=== PATIENT | male | born 1960 | race Caucasian/White ===

== ENCOUNTER → 2020-03-18 15:06 | Outpatient (CLI) | payer MEDICAID, SELFPAY ==
--- NOTE | 2020-03-18 | MISC_PTH ---
PATIENT: DANY LOYOLA LOC: [facility] U#:[id number] AGE/SX: 65/M ROOM: RE03/18/[address]: Dr. 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 See comment. JESUS:sarah 03/23/20 COMMENT Immunohistochemistry ([id number]) for surrogate HPV marker (p16) results will be reported separately. Clinical correlation and appropriate follow up are necessary. Case has been reviewed in consultation with Dr. Calle who concurs with the above diagnosis. IDC:AM MICROSCOPIC DESCRIPTION Slides are reviewed. GROSS DESCRIPTION Received in fixative is one container labeled with the patient's name and designated soft palate. The specimen consists of a piece of castellon mucosal tissue measuring 0.6 x 0.3 x 0.2 cm. The specimen is inked and submitted entirely in one cassette. / SJ:rg 03/20/20 TC:0 CPT: 82449
--- NOTE | 2020-03-18 | IMM_PTH ---
PATIENT: DANY LOYOLA LOC: [facility] U#:[id number] AGE/SX: 65/M ROOM: RE03/18/[address]: Dr. Carlyle Brandon MD : 1960 BED: DIS: SPEC #: [id number] RECD: 03/23/20 10:09 STATUS: NERI JONE #: [id number] FORREST: 03/18/20 00:[address]: Carlyle Brandon DEPT: IMMUNOHISTOCHEMISTRY RECD BY: Jillian Fernandez Tissues: Soft palate Procedures: p16 (initial) PHYSICIAN & INSTITUTION [place] [id number] SPECIMEN INFORMATION: Tissue Source: Soft palate Clinical Info: Soft tissue neoplasm Specimen Number: [id number] CPT code: 35582 METHODOLOGY: Deparaffinized sections of prefer/formalin-fixed tissue or PAP/DQ stained slides are incubated with monoclonal/polyclonal antibodies/oligonucleotide probes. Localization is made via biotin free immunoperoxidase method. Appropriate controls are performed and reacted as expected. Results on target cell population are indicated in the following table: RESULTS: ANTIBODY / CLONE RESULT P16 (E6H4) negative These tests were developed and their performance characteristics determined by [facility]. They may not have been cleared or approved by the U.S. Food and Drug Administration. The FDA has determined that such clearance or approval is not necessary. The above immunohistochemical/dualISH markers are ordered and reviewed by the Pathologist. INTERPRETATION: Soft palate, biopsy: Invasive squamous cell carcinoma. See comment. JESUS:sarah 03/24/20 Comment: Uninvolved epithelium shows focal patchy staining.
== END ==
PROVIDERS: Referring Provider Otolaryngology; Visit Provider Otolaryngology
DX: D49.0 Neoplasm of unspecified behavior of digestive system (principal)
CPT/HCPCS: 88305; 88342

== ENCOUNTER 2020-08-31 12:54 | Emergency (ER) | payer MEDICAID, SELFPAY ==
[2020-08-31 13:06] VITALS: BP 136/101; PULSE 100; RESP 19; TEMP 36.6; O2SAT 99; BMI 16.9
--- NOTE | 2020-08-31 13:39 | EKG12_ITS ---
Test Reason : GENERAL ILLNESS Blood Pressure : / mmHG Vent. Rate : 097 BPM Atrial Rate : 097 BPM P-R Int : 134 ms QRS Dur : 096 ms QT Int : 366 ms P-R-T Axes : 083 -48 080 degrees QTc Int : 464 ms Sinus rhythm with sinus arrhythmia with occasional Premature ventricular complexes Left axis deviation Septal infarct , age undetermined Abnormal ECG Confirmed by NEAL WILSON, AAMIR ([id number]), editorial cartoonist BO QUEEN ([id number]) on 09/02/2020 10:47:12 AM Referred By: LAWANDA/BB Confirmed By:AAMIR DE JESUS MD
--- NOTE | 2020-08-31 13:41 | ED.DCSUM_ITS ---
History of Present Illness Chief Complaint: General Illness Informant: Patient Onset: Month(s) - 2+ Context: Gradual Onset Timing: Continuous Quality: malaise Location: all over Current Severity: Moderate Maximum Severity: Moderate Narrative: Patient states he was diagnosed with throat cancer stage II after seeing ENT for sore throat this past summer, but subsequently his mother and he had to do a lot in trying to care for her before and after her , and states he has not seen a doctor since until today. He has been having trouble swallowing, he is able to pass liquids but not solids, he feels malaise, he has dyspnea with exertion, nonproductive cough, no chest pain or headaches or focal neurologic symptoms. He has not seen oncology yet. - Past Medical History (1) Throat cancer Status: Chronic Past Medical History - Allergies and Home Meds Allergies/Adverse Reactions: Allergies No Known Allergies Allergy (Verified 08/31/20 13:11) Primary Care Physician: Care Physician,No Primary [Primary Care Provider] - Lives: Alone Smoking Status: Current every day smoker Review of Systems General: Reports: Malaise. Denies: Chills, Fever, Sweats Eyes: Denies: Visual changes - bilaterally, Diplopia ENT: Reports: Sore throat, - - dysphagia. see HPI., - - no sense of taste/smell x at least 2 mos. Denies: Bilateral ear pain, Rhinorrhea Cardiovascular: Denies: Chest pain, Palpitations Respiratory: Denies: Dyspnea, Cough, Dyspnea on exertion Gastrointestinal: Reports: - - loss of appetite. Denies: Abdominal pain, Na usea, Vomiting, Diarrhea, Melena, Hematochezia Genitourinary: Denies: Dysuria, Hematuria, Frequency Musculoskeletal: Denies: Myalgias, Neck pain, Back pain, Swelling, Extremity Pain Skin: Denies: Rash, Wounds Neurological: Denies: Headache, Weakness, Numbness Physical Exam Vital Signs/Narrative: Vital Signs Temp Pulse Resp BP Pulse Ox 08/31/20 13:06 97.9 F 100 19 H 136/101 H 99 Inital Vital Signs reviewed: Yes General: Well nourished, Well developed, Unkempt, No Acute Distress Head: Normocephalic, Atraumatic Eyes: Perrl, EOMI - Disconjugate gaze, present since per patient ENT: No rhinorrhea, Dry mucous membranes, - - Posterior oropharynx is erythematous and with white tissue in the soft palate without an obvious unilateral mass Neck: Supple, Nontender, No lymphadenopathy Cardiovascular: No murmurs, Irregular - Occasionally, Tachycardia - Mild Respiratory: No distress, CTA bilaterally, Chest nontender, Diminished - Throughout, symmetrically Abdomen: Soft, Nontender, Nondistended, Normal bowel sounds Back: Nontender, Normal Inspection Extremities: Nontender, No edema. Negative for: Calf Tenderness Skin: Normal color, No rash, No Trauma Neurological: Alert, Oriented x3, Cranial nerves II-XII grossly intact, Normal Strength, Normal Sensation Psychological: Normal affect, Normal Mood Diagnostic/Tx/Re-eval Impressions Chest X-Ray 08/31/20 14:10 IMPRESSION: Hyperinflation. No acute abnormality is seen. Electronically Signed: Elliot Larson, at 14:34 EST , Service support , 08/31/20 14:10 Chest 1 View (Portable) [RAD] Stat 08/31/20 17:00 CTA Chest W/WO Contrast [CT] Stat Laboratory Results 08/31/20 08/31/20 08/31/20 13:00 13:00 13:00 WBC 5.7 RBC 4.69 Hgb 16.5 Hct 45.0 MCV 95.9 H MCH 35.2 H MCHC 36.7 H RDW Std Deviation 45.3 H RDW Coeff of Ariel 13.4 Plt Count 184 MPV 9.5 Immature Gran % (Auto) 0.400 Neut % (Auto) 63.9 Lymph % (Auto) 23.6 Milam % (Auto) 11.2 H Eos % (Auto) 0.5 Baso % (Auto) 0.4 Absolute Neuts (auto) 3.7 Absolute Lymphs (auto) 1.35 Nucleated RBC % 0 D-Dimer Quant (PE/DVT) 0.73 H* Sodium 133 L Potassium 3.7 Chloride 99 Carbon Dioxide 25.0 Anion Gap 9 BUN 16 Creatinine 0.60 L Estim Creat Clear Calc 90.74 Est GFR (MDRD) Af Amer 177 Est GFR (MDRD) Non-Af 146 BUN/Creatinine Ratio 26.7 H Glucose 45 L Calcium 8.8 Total Bilirubin 0.60 AST 15 ALT 11 L Alkaline Phosphatase 75 Troponin I < 0.015 Total Protein 6.3 L Albumin 2.6 L Globulin 3.7 Albumin/Globulin Ratio 0.7 L Lipase 54 L - Rhythm Strip Rhythm Strip: sinus arrhythmia Rate: 97 Ectopy: PAC(s) - EKG Initial EKG Interpretation: No Acute Injury Pattern, Sinus Arrythmia, - - LAD. PACs. Prior: No Prior - Medical Decision Making Patient does not have any significant electrolyte abnormalities, he is not anemic and does not have a leukocytosis to indicate acute infection of any sort. His chest x-ray is nonspecific, and pretty unremarkable. Given the fact that the patient states he is having moderate dyspnea with exertion along with untreated cancer, D-dimer was added and was abnormal even when corrected for age. Therefore CT angiography of the chest was obtained to rule out pulmonary embolus, it is negative. Patient was able to drink liquids without any difficulty and he was able to walk without hypoxemia. Given all of this, I explained to the patient do not think there is any medical reason to admit him at this time, but he needs to follow-up closely to get his cancer treated which he agrees with and wants to do. He does not have a PCP. He states he was not referred to ENT, he simply looked one up in the phone book and made an appointment because he was tired of having a sore throat. His biopsy shows p16 negative invasive squamous cell carcinoma of the soft palate. Patient states that he was told his is stage II. I discussed this with oncology on-call Dr. Hudson, who agrees that the patient follow-up with him as well as Dr. Brandon since he is having dysphagia that may be associated with the mass, and I will also refer the patient to a PCP since he does not have one. Discussed all this with the patient he is comfortable with this overall plan and since he is having a lot of GERD symptoms and drinking a lot of Pepto-Bismol causing him to have hard black nonmelanotic stools, we will also prescribe him a PPI. ED Disposition - Plan for ED Patient: Disposition: Home or Assisted Living Diagnosis: Squamous cell carcinoma of soft palate, Dysphagia, GERD (gastroesophageal reflux disease) Instructions: ED Dysphagia (Adult), What Are Oral Lesions? (Precancerous and Cancerous) Prescriptions: Pantoprazole Sodium [Protonix] 40 mg PO DAILY #30 tab Transmission Status: Pending to [id number] Referrals: Essence Dias MD [STAFF PHYSICIAN] - (as able for primary care) Jeffrey Hudson DO [STAFF PHYSICIAN] - As soon as possible (for oncology (cancer treatment)) Carlyle Brandon MD [STAFF PHYSICIAN] - As soon as possible (regarding your trouble swalling that may be associated with the throat mass)
[2020-08-31 14:08] VITALS: BP 136/108; PULSE 110; RESP 22; O2SAT 97
[2020-08-31] MEDS: 0.9% Normal Saline 1,000 ML 150 ML IV (14:09)
--- NOTE | 2020-08-31 14:10 | RAD_ITS ---
STUDY: X-RAY CHEST REASON FOR EXAM: Male, 60 years old. Generalized weakness, Hx throat cancer TECHNIQUE: Single AP portable view of the chest. COMPARISON: None. FINDINGS: EKG electrodes are seen. There is hyperinflation of the lungs consistent with chronic obstructive lung disease (COPD). Decreased bronchovascular markings bilaterally. There is no demonstrated pleural abnormality. Normal size heart. Normal mediastinum and junior. Normal visualized pulmonary arteries. There is atherosclerotic tortuosity of the aortic arch and descending thoracic aorta. Normal visualized thoracic spine. Normal visualized ribs, clavicles, and shoulders. There is no demonstrated abnormality of the visualized soft tissue structures of the upper abdomen. RAD/Chest 1 View (Portable) IMPRESSION: Hyperinflation. No acute abnormality is seen. Electronically Signed: Elliot Larson, at 14:34 EST , Service support ,
[2020-08-31 14:20] LABS: Absolute Lymphocyte Count 1.35 X10^3/uL (0.83-4.51); Absolute Neutrophil Count 3.7 X10^3/uL (2.0-7.7); Basophil# 0.02 X10^3/uL; Basophil% 0.4 % (0-1); Eosinophil# 0.03 X10^3/uL; Eosinophils% 0.5 % (0-5); Hemoglobin 16.5 g/dL (13.0-16.5); Lymphocyte # 1.35 X10^3/ul (4.0); Lymphocyte % 23.6 % (19-41); Mean Corp Hgb Conc 36.7 g/dL (32-36); Mean Corpuscular Hgb 35.2 pg (27.0-32.0); Mean Corpuscular Volume 95.9 fL (80-94); Mean Platelet Vol. 9.5 fl (6.2-12.0); Monocyte# 0.64 X10^3/uL; Monocyte% 11.2 % (0-10); NRBC Flagged by Analyzer 0 % (0-5); Neutrophil # 3.65 X10^3/uL (2.7-7.7); Neutrophil % 63.9 % (47-70); Platelet Count 184 K/mm3 (150-450); RBC Distribution Width CV 13.4 % (11.6-14.6); RBC Distribution Width SD 45.3 fl (35.1-43.9); Red Blood Count 4.69 M/mm3 (4.6-6.2); White Blood Count 5.7 K/mm3 (4.4-11.0)
[2020-08-31 14:30] LABS: ALB/GLOB Ratio 0.7 RATIO (0.9-2.4); AST(SGOT) 15 U/L (15-37); Alanine Aminotransfer ALT/SGPT 11 U/L (16-61); Albumin, Serum 2.6 g/dL (3.2-5.0); Alkaline Phosphatase 75 U/L (45-117); Anion Gap 9 (5-15); BUN 16 mg/dL (7-18); BUN/Creat Ratio 26.7 RATIO (10-20); Calcium,Total 8.8 mg/dL (8.5-10.1); Chloride 99 mmol/L (98-107); EST Glomerular Filtration Rate 146 mL/min (>60); Est Glom Filt Rate - Afr Amer 177 mL/min (>60); Estimated Creatinine Clearance 90.74 ml/min; Globulin 3.7 g/dL (2.2-4.2); Glucose 45 mg/dL (74-106); Lipase 54 U/L (73-393); Potassium 3.7 mmol/L (3.5-5.1); Protein, Total 6.3 g/dL (6.4-8.2); Sodium Level 133 mmol/L (136-145)
[2020-08-31 16:00] VITALS: BP 143/91; PULSE 90; RESP 19; O2SAT 97; O2SAT 99
[2020-08-31 16:35] LABS: D-Dimer Quantitative (DVT/PE) 0.73 FEU/ug/m (0.27-0.49)
--- NOTE | 2020-08-31 17:00 | CT_ITS ---
STUDY: CTA CHEST REASON FOR EXAM: Male, 60 years old. SOB, WEAKNESS, AND NAUSEA. ELEVATED D-DIMER. HX OF THROAT CA AND HTN RADIATION DOSAGE (If Supplied By Facility): CTDIvol = ( 5.16 ) mGy, DLP = ( 157.32 ) mGycm TECHNIQUE: The examination was performed with the intravenous administration of IV 100mL Isovue-370. Post-processing of the angiographic images was performed, with multiplanar reformation and 3D reconstruction. Individualized dose optimization techniques were used for this CT. COMPARISON: None. FINDINGS: Normal enhancement of the main pulmonary artery and right and left pulmonary arteries. Normal enhancement of the bilateral peripheral pulmonary arteries. There is no demonstrated pulmonary embolism. Normal thoracic aorta and visualized great vessels. There is no demonstrated aortic dissection. Normal heart and pericardium. Normal mediastinum. Normal hilar regions. Normal visualized trachea and bronchi. The lungs are hyper expanded, with flattening of the hemidiaphragms. There are no pulmonary infiltrates. There are no pleural effusions. Normal chest wall structures. There are degenerative changes of thoracic spine. Normal visualized upper abdomen. CT/CTA Chest W/WO Contrast IMPRESSION: Normal CTA chest examination, without a demonstrated pulmonary embolism or arterial dissection. There are findings consistent with COPD. There is no evidence of acute chest disease. Electronically Signed: Dani Amin MD at 17:28 EST , Service support ,
[2020-08-31 18:21] VITALS: BP 139/93; PULSE 92; RESP 18; O2SAT 99
== END 2020-08-31 18:35 | disposition home or self-care (01) ==
PROVIDERS: Emergency Provider Emergency Medicine
DX: C05.1 Malignant neoplasm of soft palate (principal); R13.10 Dysphagia, unspecified; K21.9 Gastro-esophageal reflux disease without esophagitis; F17.200 Nicotine dependence, unspecified, uncomplicated
CPT/HCPCS: 71045; 71275; 80053; 83690; 84484; 85025; 85379; 93005; 96360; 96361; 99285; Q9967; A4216

== ENCOUNTER 2020-10-07 10:03 | Day surgery (SDC) | payer MEDICAID, SELFPAY ==
--- NOTE | 2020-10-05 09:01 | PCM.HP.BLA ---
History and Physical Date of Admission: 10/07/20 HISTORY AND PHYSICAL ? Otoniel Vega 1960 ? ? REFERRING PHYSICIAN: Jeffrey Hudson, DO ? CHIEF COMPLAINT: Consult (Consult Peg tube) ? HPI: The patient is a 60 year old male who presents with late stage head and neck cancer and is referred by Dr. Hudson, his oncologist for placement of PEG. ? He had undergone soft palate biopsy by Dr. Brandon on 03/20/2020. 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 ? He did not follow up with oncological evaluation and radiological studies because he states that he was caring for his mother who recently passed. ? He then presented to [facility] ED 08/31/2020 - ED note - Patient states he was diagnosed with throat cancer stage II after seeing ENT for sore throat this past summer, but subsequently his mother and he had to do a lot in trying to care for her before and after her , and states he has not seen a doctor since until today. He has been having trouble swallowing, he is able to pass liquids but not solids, he feels malaise, he has dyspnea with exertion, nonproductive cough, no chest pain or headaches or focal neurologic symptoms. He has not seen oncology yet. ? Patient was evaluated by Dr. Hudson on 09/15/2020. Recent CT scan 09/18/2020 reveals cervical adenopathy consistent with metastatic disease. Patient is only able to take in liquids and soft foods at this point. He states that he has lost significant weight in the past 2-3 months. He also states that he feels very weak and can barely walk. He is a heavy TOB user and continues this use. He has not had a PCP. ? ? PAST MEDICAL HISTORY: SCCa of the head and neck with metastasis TOB use ? ? PAST SURGICAL HISTORY ? PAST SURGICAL HISTORY OF ? 03/18/2020 ? Soft palate biopsy Right eye surgery as child ? ? Current Outpatient Medications ? pantoprazole DR (PROTONIX) 40 mg tablet Take 40 mg by mouth once daily. ? albuterol HFA (PROVENTIL HFA, VENTOLIN HFA) 90 mcg/actuation inhaler INHALE 1 TO 2 PUFFS BY MOUTH EVERY 4 HOURS NEEDED FOR WHEEZING ? nystatin (MYCOSTATIN) 100,000 unit/mL suspension Take 5 mL by mouth four times daily. ? wlckkxgsctHZVNU-bpxpuo-qrddfhtyl (BMX 1:1:1) 1:1:1 liqd Take 10 mL by mouth every 4 hours as needed. ? ALLERGIES: Patient has no known allergies. ? PERSONAL HISTORY: Social History ?Tobacco Use ? Smoking status: Current Every Day Smoker ? ? Packs/day: 0.50 ? ? Years: 20.00 ? ? Pack years: 10.00 ? ? Types: Cigarettes ? Smokeless tobacco: Never Used Substance Use Topics ? Alcohol use: Not Currently ? ? Comment: past hx of 6 pack per day ? Drug use: Never ? FAMILY HISTORY ? Hypertension Mother ? ? Skin Cancer Mother ? ? ? REVIEW OF SYSTEMS: Constitutional: Denies episodes of fever and night sweats. Neuro: ?feels weak - can't walk long distances, denies STANLEY, vertigo, dizziness and imbalance. Denies symptoms of neuropathy, hard of hearing. Resp: has shortness of breath with exertion, has a chronic cough, still smokes cigarettes. CVS: Denies exertional chest pain, PND, orthopnea and LE edema. GI: denies abdominal pain, states that my stomach is killing me, states that he is hungry : Denies dysuria or gross hematuria. No symptoms of bladder outlet obstruction. Endo: Denies hot flashes. Denies polyuria and polydipsia. Denies heat and cold intolerance. Musculoskeletal: Denies bone, back, joint and muscular pain. Derm: Denies rash. Denies jaundice and diffuse pruritis. Heme: Denies unusual bleeding and unexplained bruising. Psych: seemingly angry and frustrated ? PHYSICAL EXAMINATION: Vitals:?BP-115/90, HR 100, Temp 98.1F, Ht: 5'6 (stated), Wt: 107#. General - poorly groomed and cachectic-appearing and in no acute distress. Eyes: right eye gaze disparate, sclerae clear bilaterally. Mouth: mucus membranes moist, large macerated appearing mass across the soft palate, evidence of thrush. Neck: large mass of right neck at least 8 cm, neck otherwise supple and mobile? Lungs: Inspiratory breath sounds are of?diminished?intensity in all [place]. No rales, wheezes or rhonchi. Cardiovascular: Rhythm is regular. Abdomen: The abdomen is nondistended. No organomegaly. No tenderness. Extremities: No swelling or edema. ? Lymph: see neck above, no axillary or supraclavicular adenopathy noted Skin: No jaundice or rash. Neuro: no focal deficits noted. Musculoskeletal:?Temporal muscle wasting, muscle wasting of limbs noted ? RADIOLOGIC STUDIES: As Noted ? IMPRESSION: SCCa head and neck cancer with known metastasis, non compliance ? PLAN: In summary, this is a non compliant, angry (his attitude in this patient encounter) patient who presents with late stage SCCa head and neck cancer. I have explained the placement of the PEG to the patient, I have offered placement of PEG to patient. I have explained the procedure to the patient, I have told him that I will place the gastrostomy tube via endoscopy and that it will be done with MAC anesthesia. I have explained the risks of the procedure, including but not limited to: infection, bleeding, injury to any internal organ, inability to place the tube due to patient's advanced head and neck disease, etc. - patient agrees to proceed I have answered all questions to the patient?s satisfaction and the patient has no further questions. . 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 Lorri Ortiz MD
[2020-10-07] VITALS (7 sets, daily range): BP systolic 91–117; BP diastolic 64–91; PULSE 61–90; RESP 17–18; TEMP 36.1–36.9; O2SAT 95–100; BMI 15.7
[2020-10-07] MEDS: Lactated Ringers 1,000 ML 75 ML IV (07:00)
--- NOTE | 2020-10-07 11:37 | SUR.PREOP ---
gtube teaching initiated
[2020-10-07] MEDS: Cefazolin 2 GM in 0.9% Normal Saline 100 ML IV (12:25)
--- NOTE | 2020-10-07 12:55 | OP.CCLET_ITS ---
10/07/2020 No Primary Care Physician Re : Upper GI endoscopy procedure for Otoniel Vega Dear Care Physician This procedure was performed on Wednesday, October 07, 2020. My impressions and recommendations are as follows: Impressions : - Normal first portion of the duodenum and second portion of the duodenum. - No gross lesions in the stomach. - Small hiatal hernia. - No specimens collected. Recommendations : - Please follow the post-PEG recommendations. - Continue present medications. My findings are described in the full procedure note, which is enclosed. If I can be of further assistance, please feel free to contact me at Doctor phone number(s): , Work: . Sincerely, MD Lorri Spear MD 10/07/2020 12:55:05 PM This report has been signed electronically.
--- NOTE | 2020-10-07 12:55 | OP.EGD_ITS ---
Patient Name: Otoniel Vega Procedure Date: 10/07/2020 11:49 AM Date of : 1960 Age: 60 Procedure: Upper GI endoscopy Indications: Place PEG because patient is unable to eat, Place PEG due to feeding difficulties secondary to oropharyngeal tumor, Failure to thrive, Malnutrition, Weight loss Providers: Lorri Ortiz MD Referring MD: Lorri Ortiz MD Medicines: See the Anesthesia note for documentation of the administered medications Patient Profile: Refer to note in patient chart for documentation of history and physical. Complications: No immediate complications. Procedure: Pre-Anesthesia Assessment: - see anesthesia note After obtaining informed consent, the endoscope was passed under direct vision. Throughout the procedure, the patient's blood pressure, pulse, and oxygen saturations were monitored continuously. The Endoscope was introduced through the mouth, and advanced to the second part of duodenum. The upper GI endoscopy was accomplished without difficulty. The patient tolerated the procedure well. Scope In: 12:31:03 PM Scope Out: 12:42:29 PM Total Procedure Duration Time 0 hours 11 minutes 26 seconds Findings: The first portion of the duodenum and second portion of the duodenum were normal. No gross lesions were noted in the stomach. The patient was placed in the supine position for PEG placement. The stomach was insufflated to appose gastric and abdominal ybarra. A site was located in the body of the stomach with excellent transillumination for placement. The abdominal wall was marked and prepped in a sterile manner. The area was anesthetized with 3 mL of 1% lidocaine. The trocar needle was introduced through the abdominal wall and into the stomach under direct endoscopic view. A snare was introduced through the endoscope and opened in the gastric lumen. The guide wire was passed through the trocar and into the open snare. The snare was closed around the guide wire. The endoscope and snare were removed, pulling the wire out through the mouth. A skin incision was made at the site of needle insertion. The externally removable 20 Fr Bard gastrostomy tube was lubricated. The G-tube was tied to the guide wire and pulled through the mouth and into the stomach. The trocar needle was removed, and the gastrostomy tube was pulled out from the stomach through the skin. The external bumper was attached to the gastrostomy tube, and the tube was cut to remove the guide wire. The final position of the gastrostomy tube was confirmed by relook endoscopy, and skin marking noted to be 1.5 cm at the external bumper. The final tension and compression of the abdominal wall by the PEG tube and external bumper were checked and revealed that the bumper was moderately tight and mildly deforming the skin. The feeding tube was capped, and the tube site cleaned and dressed. A small hiatal hernia was present. Impression: - Normal first portion of the duodenum and second portion of the duodenum. - No gross lesions in the stomach. - Small hiatal hernia. - No specimens collected. Recommendation: - Please follow the post-PEG recommendations. - Continue present medications. Procedure Code(s): --- Professional --- 22583, Esophagogastroduodenoscopy, flexible, transoral; diagnostic, including collection of specimen(s) by brushing or washing, when performed (separate procedure) Diagnosis Code(s): --- Professional --- K44.9, Diaphragmatic hernia without obstruction or gangrene R63.3, Feeding difficulties Z43.1, Encounter for attention to gastrostomy D37.05, Neoplasm of uncertain behavior of pharynx R62.7, Adult failure to thrive E46, Unspecified protein-calorie malnutrition R63.4, Abnormal weight loss CPT copyright 2017 [employer]. All rights reserved. The codes documented in this report are preliminary and upon electric motor mechanic review may be revised to meet current compliance requirements. MD Lorri Spear MD 10/07/2020 12:55:05 PM This report has been signed electronically. Number of Addenda: 0 Note Initiated On: 10/07/2020 11:49 AM
== END 2020-10-07 15:19 | disposition home or self-care (01) ==
LOC: EN 10:04 → AC 10:05
PROVIDERS: Referring Provider Surgery; Visit Provider Surgery
PROC: 0DJ08ZZ Inspection of Upper Intestinal Tract, Via Natural or Artificial Opening Endoscopic (ICD-10-PCS; CPT 43235; principal; 2020-10-07 11:55)
DX: C10.9 Malignant neoplasm of oropharynx, unspecified (principal); C77.0 Secondary and unspecified malignant neoplasm of lymph nodes of head, face and neck; E44.0 Moderate protein-calorie malnutrition; K44.9 Diaphragmatic hernia without obstruction or gangrene; R63.3 Feeding difficulties; R63.4 Abnormal weight loss; R62.7 Adult failure to thrive; R13.10 Dysphagia, unspecified; Z20.822 Contact with and (suspected) exposure to COVID-19; Z91.19 Patient's noncompliance with other medical treatment and regimen; F17.210 Nicotine dependence, cigarettes, uncomplicated
CPT/HCPCS: 43246; 87426; 97802; C9803; J7120; J2405